=== PATIENT | female | born 1980 | race Caucasian/White ===

== ENCOUNTER 2018-03-01 01:38 | Emergency (ER) | payer OTHER ==
[2018-03-01] MEDS ORDERED: DEXAMETHASONE SOD PHOS INJ 10 MG/1 ML VIAL IM ONE (01:48)
--- NOTE | 2018-03-01 01:49 | ER Document Report ---
ED General - General Stated Complaint: POSSIBLE ALLERGIC REACTION Time Seen by Provider: 03/01/18 01:46 Notes: Patient is a 37-year-old female with a past medical history of epilepsy who presents with diffuse hives, bilateral hand and feet swelling. The patient reports that she has had some localized irritation to the injection site of progesterone which she has been taking to support a recent embryonic transplant. She states that initially there was only some mild irritation to the area but over the past 24 hours she has had progressively worsening swelling and pain to her bilateral hands and feet as well as scattered hives over her upper extremities, bilateral lower extremities and her upper back. She has been trying Benadryl, famotidine with moderate improvement. No obvious trigger other than recent initiation of progesterone injections. She denies any difficulty breathing, vomiting, abdominal cramping, diarrhea, or difficulty swallowing. She has contacted her BUSINESS EDITOR regarding today's concerns. TRAVEL OUTSIDE OF THE [place] IN LAST 30 DAYS: No Past Medical History - General Information source: Patient - Social History Smoking Status: Never Smoker Frequency of alcohol use: None Drug Abuse: None Lives with: Spouse/Significant other Family History: Reviewed & Not Pertinent Review of Systems - Review of Systems Notes: Constitutional: Negative for fever. HENT: Negative for sore throat. Eyes: Negative for visual changes. Cardiovascular: Negative for chest pain. Respiratory: Negative for shortness of breath. Gastrointestinal: Negative for abdominal pain, vomiting or diarrhea. Genitourinary: Negative for dysuria. Musculoskeletal: Negative for back pain. Skin: Positive for rash. Neurological: Negative for headaches, weakness or numbness. 10 point ROS negative except as marked above and in HPI. Physical Exam - Vital signs Interpretation: Normal Notes: PHYSICAL EXAMINATION: GENERAL: Well-appearing, well-nourished and in no acute distress. HEAD: Atraumatic, normocephalic. EYES: extraocular movements intact, sclera anicteric, conjunctiva are normal. ENT: nares patent, oropharynx clear without exudates. No oral lesions. NECK: Normal range of motion, no stridor LUNGS: Breath sounds clear to auscultation bilaterally and equal. No wheezes rales or rhonchi. HEART: Regular rate and rhythm without murmurs EXTREMITIES: Normal range of motion, no pitting or edema. No cyanosis. NEUROLOGICAL: No focal neurological deficits. Moves all extremities spontaneously. PSYCH: Normal mood, normal affect. SKIN: Warm, Dry, normal turgor, notable swelling to the palmar surface of the bilateral hands. Scattered urticaria over the bilateral upper and lower extremities. Course - Re-evaluation Re-evalutation: 03/01/18 01:48 Patient presents with symptoms consistent with an allergic reaction without anaphylaxis. Only cutaneous involvement with multiple areas of hives. Vitals otherwise within normal limits at time of arrival. No respiratory, GI, cardiovascular, or oral pharyngeal symptoms. Patient was treated with a single dose of dexamethasone. Will recommend ongoing antihistamine therapy as an outpatient. At this time will discharge with return precautions and follow-up recommendations. Verbal discharge instructions given a the bedside and opportunity for questions given. Medication warnings reviewed. Patient is in agreement with this plan and has verbalized understanding of return precautions and the need for primary care follow-up in the next 24-72 hours. Discharge - Discharge Clinical Impression: Urticaria Allergic reaction caused by a drug Qualifiers: Encounter type: initial encounter Qualified Code(s): T78.40XA - Allergy, unspecified, initial encounter Condition: Good Disposition: HOME, SELF-CARE Additional Instructions: You were seen today for hives. This can be either allergic, autoimmune, or environmental in origin. You can continue to take cetirizine 10mg up to 3 times daily as needed for itching. Apply the topical steroid cream that has been prescribed as needed for severe inching. IF YOU DEVELOP DIFFICULTY BREATHING, SPREADING OF HIVES, VOMITING, LIGHTHEADEDNESS, IMMEDIATELY AND CALL 911. Please follow-up with your primary care physician in the next 1-2 days. Prescriptions: Triamcinolone Acetonide 80 gm TP TID #15 cream.gm. Referrals: LOCALMD,NO [NO LOCAL MD] - Follow up as needed
[2018-03-01 03:43] VITALS: BP 124/69
== END 2018-03-01 02:03 | disposition home or self-care (01) ==
LOC: ER 01:38
DX: L50.0 Allergic urticaria (principal)
CPT/HCPCS: 99283; 96372; J1100

== ENCOUNTER → 2018-03-03 | Outpatient (CLI) | payer OTHER | LOC: LAB 07:43 | PROVIDERS: ATTEND Obstetrics & Gynecology Reproductive Endocrinology | DX: N92.5 Other specified irregular menstruation (principal); N94.89 Other specified conditions associated with female genital organs and menstrual cycle | CPT/HCPCS: 36415; 84144; 84702 ==

== ENCOUNTER → 2018-03-05 | Outpatient (CLI) | payer OTHER | LOC: LB 09:05 | PROVIDERS: ATTEND Family Medicine | DX: N94.89 Other specified conditions associated with female genital organs and menstrual cycle (principal) | CPT/HCPCS: 36415; 84702 ==

== ENCOUNTER → 2018-03-09 | Outpatient (CLI) | payer OTHER | LOC: ER 09:21 | PROVIDERS: ATTEND Obstetrics & Gynecology Reproductive Endocrinology | DX: O09.811 Supervision of pregnancy resulting from assisted reproductive technology, first trimester (principal) | CPT/HCPCS: 36415; 84144; 84702 ==

== ENCOUNTER → 2018-04-08 | Outpatient (CLI) | payer OTHER | LOC: LAB 19:48 | PROVIDERS: ATTEND Obstetrics & Gynecology Reproductive Endocrinology | DX: O09.891 Supervision of other high risk pregnancies, first trimester (principal) | CPT/HCPCS: 36415; 82670; 84144 ==

== ENCOUNTER 2018-04-11 13:32 | Emergency (ER) | payer OTHER ==
--- NOTE | 2018-04-11 14:09 | ER Document Report ---
ED General - General Chief Complaint: Vag Bleeding, +preg <12wks Stated Complaint: VAGINAL BLEEDING Time Seen by Provider: 04/11/18 14:00 TRAVEL OUTSIDE OF THE [place] IN LAST 30 DAYS: No - HPI Notes: Patient is a 38-year-old female that presents to the emergency department for chief complaint of vaginal bleeding in . Patient history of vaginal delivery of twins presents for vaginal bleeding. Due date 11/10/18. Patient had implantation of this back in December and has been taking hormone supplements as prescribed by FABRICATION MACHINE OPERATOR. She has had good follow-up throughout this . Patient has had early ultrasound to confirm intrauterine gestation. She reports vaginal bleeding that began 1 hour ago. Bleeding is bright red with no clotting. She has some associated lower abdominal cramping. She has had some lower back pain for the last 2 days. Denies history of miscarriage in the past. Denies any fevers nausea and vomiting. Past Medical History: Seizures, endometriosis Past Surgical History: Ex lap for endometriosis Social History: Occasional alcohol prior to . Denies tobacco and drug use Family History: Reviewed and noncontributory for presenting illness Allergies: Reviewed, see documented allergy list. REVIEW OF SYSTEMS: CONSTITUTIONAL : No fever No chills No diaphoresis No recent illness EENT: No vision changes No congestion No sore throat CARDIOVASCULAR: No chest pain No palpitations RESPIRATORY: No shortness of breath No cough No difficulty breathing GASTROINTESTINAL: abdominal pain No nausea No vomiting No diarrhea GENITOURINARY: No dysuria No hematuria No difficulty urinating Vaginal bleeding MUSCULOSKELETAL: No back pain No leg pain No arm pain SKIN: No rashes No lesions LYMPHATIC: No swollen, enlarged glands. NEUROLOGICAL: No lightheadedness No headache No weakness No paresthesias PSYCHIATRIC: No anxiety No depression PHYSICAL EXAMINATION: Vital signs reviewed, nursing noted reviewed. GENERAL: Well-appearing, well-nourished and in no acute distress. HEAD: Atraumatic, normocephalic. EYES: Eyes appear normal, extraocular movements intact, sclera anicteric, conjunctiva are normal. ENT: nares patent, oropharynx clear without exudates. Moist mucous membranes. NECK: Normal range of motion, supple without lymphadenopathy LUNGS: Breath sounds clear to auscultation bilaterally and equal. No wheezes rales or rhonchi. HEART: Regular rate and rhythm without murmurs ABDOMEN: Soft, nontender, normoactive bowel sounds. No rebound, guarding, or rigidity. No masses appreciated. EXTREMITIES: Nontender, good range of motion, no pitting or edema. NEUROLOGICAL: No focal neurological deficits. Moves all extremities spontaneously Motor and sensory grossly intact on exam. PSYCH: Normal mood, normal affect. SKIN: Warm, Dry, normal turgor, no rashes or lesions noted on exposed skin - Related Data Allergies/Adverse Reactions: pamabrom Allergy (Verified 04/11/18 13:33) Past Medical History - Social History Smoking Status: Never Smoker Family History: Reviewed & Not Pertinent Renal/ Medical History: Denies: Hx Peritoneal Dialysis Review of Systems - Review of Systems Notes: Dictated Physical Exam - Vital signs Vitals: Temp Pulse Resp BP Pulse Ox 98.2 F 91 16 133/75 H 99 04/11/18 14:16 04/11/18 14:16 04/11/18 14:16 04/11/18 14:16 04/11/18 14:16 - Notes Notes: Dictated Course - Re-evaluation Re-evalutation: 04/11/18 14:08 Vitals reviewed. Nursing notes reviewed. Bedside ultrasound shows intrauterine gestation however I am unable to visualize a heartbeat. Formal transvaginal ultrasound will be obtained. 04/11/18 15:11 Ultrasound shows no heart tones concerning for early demise. Recommend getting repeat beta hCG quant level and ultrasound in the next few days for confirmation. Rh+ and RhoGam not indicated. Patient will follow with FABRICATION MACHINE OPERATOR for further management. She will return for new or worsening symptoms. Discharged home in stable condition. Laboratory 04/11/18 04/11/18 04/11/18 13:47 13:47 13:47 WBC 8.3 RBC 4.45 Hgb 13.1 Hct 38.4 MCV 86 MCH 29.3 MCHC 34.0 RDW 12.5 Plt Count 298 Seg Neutrophils % 54.9 Lymphocytes % 24.8 Monocytes % 7.3 Eosinophils % 12.5 H Basophils % 0.5 Absolute Neutrophils 4.6 Absolute Lymphocytes 2.1 Absolute Monocytes 0.6 Absolute Eosinophils 1.0 H Absolute Basophils 0.0 Sodium 141.0 Potassium 4.1 Chloride 104 Carbon Dioxide 25 Anion Gap 12 BUN 13 Creatinine 0.59 Glucose 98 Calcium 9.4 Blood Type B POSITIVE Rhogam Indicated RHOGAM NOT INDICATED Transvaginal US 04/11/18 14:02 IMPRESSION: 1. Single intrauterine gestation without heart rate detected, concerning for failed 1st trimester . Recommend short-term sonographic follow-up and correlation with serial beta hCGs. 2. Small amount of pelvic free fluid. Trimester of : First - 0 to 13 weeks. - Vital Signs Vital signs: Temp Pulse Resp BP Pulse Ox 98.2 F 91 16 133/75 H 99 04/11/18 14:16 04/11/18 14:16 04/11/18 14:16 04/11/18 14:16 04/11/18 14:16 - Laboratory Result Diagrams: 04/11/18 13:47 04/11/18 13:47 Laboratory results interpreted by me: 04/11/18 13:47 Eosinophils % 12.5 H Absolute Eosinophils 1.0 H Discharge - Discharge Clinical Impression: Threatened in early Condition: Stable Disposition: HOME, SELF-CARE Instructions: Threatened Miscarriage ([facility]) Additional Instructions: Please return to the emergency department if you have any worsening, or concern of your symptoms. Please return to the emergency department if you develop chest pain, difficulty breathing, severe abdominal pain, or ongoing vomiting. Please follow-up with your primary care physician in 2-3 days and any other recommended physicians. If prescribed, take all medications as directed. If you have any questions or concerns do not hesitate to return the emergency department for evaluation. Call your FABRICATION MACHINE OPERATOR tomorrow morning to schedule repeat ultrasound and beta hCG quant levels
[2018-04-11 14:17] VITALS: BP 133/75
[2018-04-11 14:28] LABS: ABSOLUTE LYMPHOCYTES (AUTO) 2.1 10^3/uL (0.5-4.7); ABSOLUTE MONOCYTES (AUTO) 0.6 10^3/uL (0.1-1.4); ABSOLUTE NEUT (AUTO) 4.6 10^3/uL (1.7-8.2); BASOPHILS % (AUTO) 0.5 % (0-2); EOSINOPHILS % (AUTO) 12.5 % (0-6); HEMATOCRIT 38.4 % (36.0-47.0); HEMOGLOBIN 13.1 g/dL (12.0-15.5); LYMPHOCYTES % (AUTO) 24.8 % (13-45); MEAN CORPUSCULAR HEMOGLOBIN 29.3 pg (27.0-33.4); MEAN CORPUSCULAR VOLUME 86 fl (80-97); MONOCYTES % (AUTO) 7.3 % (3-13); PLATELET COUNT 298 10^3/uL (150-450); RED BLOOD COUNT 4.45 10^6/uL (3.72-5.28); RED CELL DISTRIBUTION WIDTH 12.5 % (11.5-14.0); SEGMENTED NEUTROPHILS % (AUTO) 54.9 % (42-78); TOTAL CELLS COUNTED % (AUTO) 100 %; WHITE BLOOD COUNT 8.3 10^3/uL (4.0-10.5)
[2018-04-11 14:46] LABS: ANION GAP 12 (5-19); BLOOD UREA NITROGEN 13 mg/dL (7-20); CALCIUM 9.4 mg/dL (8.4-10.2); CARBON DIOXIDE 25 mmol/L (22-30); CHLORIDE 104 mmol/L (98-107); GLUCOSE 98 mg/dL (75-110); POTASSIUM 4.1 mmol/L (3.6-5.0)
--- NOTE | 2018-04-11 14:55 | RADIOLOGY REPORT (SQ) ---
EXAM DESCRIPTION: U/S OB TRANSVAG W/DOPPLER COMPLETED DATE/TIME: 04/11/2018 2:31 pm REASON FOR STUDY: vaginal bleeding in preg COMPARISON: None. TECHNIQUE: Transvaginal static and realtime grayscale images acquired of the pelvis. Additional oskar cted spectral and color Doppler images recorded. All images stored on PACs. bHCG: Not available. CLINICAL DATES: 9 weeks 5 days LIMITATIONS: None. FINDINGS: FETUS: Single Living intrauterine . ULTRASOUND EGA: 9 weeks 4 day ULTRASOUND KENDRA: 11/10/2017 EFW: Not applicable less than 20 weeks. CRL: 2.8 cm FHR: No heart rate detected M mode, color or power Doppler SURVEY: Too early to assess. AMNIOTIC FLUID: Adequate amount. PLACENTA: Not yet developed due to early gestation. SUBCHORIONIC BLEED: No. SIZE OF BLEED: Not applicable. UTERUS: No masses. No anomalies. CERVICAL LENGTH: 4 sternum Closed. RIGHT ADNEXA: Normal ovary with normal vascular flow. No adnexal free fluid. No adnexal masses. 3.4 x 1.7 x 2.07 LEFT ADNEXA: Normal ovary with normal vascular flow. No adnexal free fluid. No adnexal masses. 2.3 x 1.4 x 1.5 cm FREE FLUID: Small pelvic free flow OTHER: No other significant finding. IMPRESSION: 1. Single intrauterine gestation without heart rate detected, concerning for failed 1st trimest er . Recommend short-term sonographic follow-up and correlation with serial beta hCGs. 2. Small amount of pelvic free fluid. Trimester of : First - 0 to 13 weeks. TECHNICAL DOCUMENTATION: JOB ID: [id number]- All Rights Reserved rev Reading location - IP/workstation name: [email or web address]
== END 2018-04-11 15:25 | disposition home or self-care (01) ==
LOC: ER 13:32
DX: O20.0 Threatened abortion (principal); O26.891 Other specified pregnancy related conditions, first trimester; R10.30 Lower abdominal pain, unspecified; O09.811 Supervision of pregnancy resulting from assisted reproductive technology, first trimester; Z3A.00 Weeks of gestation of pregnancy not specified; Z88.6 Allergy status to analgesic agent
CPT/HCPCS: 36415; 76817; 80048; 84702; 85025; 86900; 86901; 93976; 99284

== ENCOUNTER → 2019-05-13 | Outpatient (CLI) | payer OTHER ==
[2019-05-13 10:43] LABS: CHLAM PCR NOT DETECTED (NOT DETECT)
[2019-05-14 06:36] LABS: HEPATITIS C VIRUS AB <0.1 s/co ratio (0.0-0.9)
[2019-05-16 07:23] LABS: HEPATITS B SURFACE ANTIGEN Negative (Negative)
== END ==
LOC: LB 07:09
PROVIDERS: ATTEND Obstetrics & Gynecology Reproductive Endocrinology
DX: Z11.3 Encounter for screening for infections with a predominantly sexual mode of transmission (principal)
CPT/HCPCS: 36415; 86592; 86701; 86803; 86804; 87340; 87491; 87591

== ENCOUNTER 2019-06-26 16:30 | Emergency (ER) | payer OTHER ==
[2019-06-26] MEDS ORDERED: FAMOTIDINE INJ/PF 20 MG/2 ML SDV IV ONE ×2 (16:36→16:37)
[2019-06-26] MEDS ORDERED: DEXAMETHASONE SOD PHOSPHATE INJ 4 MG/1 ML VIAL ONE (16:36)
[2019-06-26] MEDS ORDERED: DIPHENHYDRAMINE HCL 50 MG/ML VIAL IV ONE (16:36)
[2019-06-26] MEDS ORDERED: DEXAMETHASONE SOD PHOS INJ 10 MG/1 ML VIAL IV ONE (16:36)
[2019-06-26] MEDS ORDERED: DIPHENHYDRAMINE HCL 50 MG/ML VIAL ONE (16:37)
--- NOTE | 2019-06-26 16:56 | ER Document Report ---
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 Patient complained of some swallowing patient has been receiving progesterone in sesame seed oil as injections as fertility adherent and actually had received injections last year with progesterone with cottonseed oil and had a severe allergic reaction as well. An chicken vaccinator was consulted and it was found she was not allergic to cottonseed oil. Patient has been having rhinorrhea and swelling of bilateral legs requiring her to wear stockings to her knees. Patient called her around 1600 who works on the [email or web address] and he will arrive as soon as he is off work around 1700. TRAVEL OUTSIDE OF THE [place] IN LAST 30 DAYS: No - HPI Onset: Other - Yesterday morning; but awoke this morning 0 530 with intense itchiness and took Benadryl 50 as well as another 50 at 1000 and another at 12 noon; Onset/Duration: Sudden Quality of pain: Other - Itchiness and problems swallowing Severity: Severe Pain Level: 5 Associated symptoms: Leg swelling - Bilateral leg swelling with stocking bilateral to knees, Other - Rhinorrhea and problems swallowing - Related Data Allergies/Adverse Reactions: cottonseed oil Allergy (Verified 06/26/19 17:00) pamabrom Allergy (Verified 04/11/18 13:33) Past Medical History - General Information source: Patient - Social History Smoking Status: Never Smoker - Reports she had allergic reaction when she was 20 in college to Pamabrom has 8 bromo-theophylline and also aminoisobutanol pa racetamol. She reports she drinks tea but has no reactions. Patient also takes Keppra and Vimpat for seizures Cigarette use (# per day): No Chew tobacco use (# tins/day): No Smoking Education Provided: No Frequency of alcohol use: Occasional Drug Abuse: None Lives with: Family Family History: Reviewed & Not Pertinent Patient has suicidal ideation: No Patient has homicidal ideation: No Renal/ Medical History: Denies: Hx Peritoneal Dialysis Past Surgical History: Reports: Hx Gynecologic Surgery Review of Systems - Review of Systems Constitutional: Malaise EENT: Nose congestion Cardiovascular: Palpitations, Other - Patient usually runs around 55 bpm heart rate Respiratory: Hurts to breathe Gastrointestinal: No symptoms reported Genitourinary: No symptoms reported Musculoskeletal: Leg swelling, Ankle swelling Skin: Rash Hematologic/Lymphatic: No symptoms reported Neurological/Psychological: No symptoms reported Physical Exam - Vital signs Vitals: Resp BP Pulse Ox 21 H 139/82 H 99 06/26/19 16:33 06/26/19 16:33 06/26/19 16:33 Interpretation: Tachycardic - General General appearance: Anxious In distress: Mild - HEENT Head: Normocephalic Eyes: Normal Conjunctiva: Normal Cornea: Normal Extraocular movements intact: Yes Eyelashes: Normal Pupils: PERRL Mouth/Lips: Other - Edema uvula Pharynx: Erythema Neck: Other - Normal range of motion but positive for allergic skin reaction - Respiratory Respiratory status: No respiratory distress Chest status: Nontender Breath sounds: Normal Chest palpation: Normal - Cardiovascular Rhythm: Tachycardia Heart sounds: Normal auscultation Murmur: No Friction rub: No Roger's crunch: No - Abdominal Inspection: Normal Distension: No distension Bowel sounds: Normal Tenderness: Nontender Organomegaly: No organomegaly - Back Back: Other - Allergic reaction to back confluent maculopapular erythemic - Extremities General upper extremity: Edema, Other - And confluent erythemic maculopapular rash from hands dorsally palmar wrist volar dorsal and forearms and arms very pruritic General lower extremity: Edema - Maculopapular rash all confluent and discrete that range from 1 cm to confluency annular and circumferential - Neurological Neuro grossly intact: Yes Cognition: Normal Orientation: AAOx4 [place] Coma Scale Eye Opening: Spontaneous [place] Coma Scale Verbal: Oriented Speech: Normal Cranial nerves: Normal Cerebellar coordination: Normal - Psychological Associated symptoms: Normal affect, Anxious - Skin Skin Temperature: Warm Skin Color: Erythema Location of irregularity: Generalized Character of irregularity: Maculopapular, Erythematous, Urticarial Course - Vital Signs Vital signs: Temp Pulse Resp BP Pulse Ox 39 H 126/81 H 99 06/26/19 16:59 06/26/19 16:59 06/26/19 16:59 - Laboratory Result Diagrams: 06/26/19 16:30 06/26/19 16:30 Laboratory results interpreted by me: 06/26/19 06/26/19 06/26/19 16:30 16:30 16:30 WBC 12.7 H Hgb 15.8 H Lymph % (Auto) 9.0 L [place] % (Auto) 2.6 L Absolute Neuts (auto) 11.1 H Seg Neutrophils % 88.0 H Sodium 134.7 L Glucose 118 H Beta HCG, Quant 7.05 H Urine Protein Urine Ketones 06/26/19 17:25 WBC Hgb Lymph % (Auto) [place] % (Auto) Absolute Neuts (auto) Seg Neutrophils % Sodium Glucose Beta HCG, Quant Urine Protein 30 H Urine Ketones TRACE H - EKG Interpretation by Me EKG shows normal: Sinus rhythm Rate: Normal - 96 hr Critical Care Note - Critical Care Note Total time excluding time spent on procedures (mins): 90 Comments: I advised cool showers and continued Pepcid and Benadryl and Decadron 4 Discharge - Discharge Clinical Impression: Allergic reaction caused by a drug Condition: Good Disposition: HOME, SELF-CARE Additional Instructions: Follow-up with OB doctor and with chicken vaccinator and continue with Benadryl Pepcid and Decadron and cool showers. Return to ER if symptoms persist or worsen Prescriptions: Dexamethasone [Decadron 4 Mg Tablet] 4 mg PO BID #8 tablet Famotidine [Pepcid 40 mg Tablet] 40 mg PO BID PRN #20 tablet PRN Reason: Forms: Return to Work
[2019-06-26 17:31] LABS: ABSOLUTE LYMPHOCYTES (AUTO) 1.1 10^3/uL (0.5-4.7); ABSOLUTE MONOCYTES (AUTO) 0.3 10^3/uL (0.1-1.4); ABSOLUTE NEUT (AUTO) 11.1 10^3/uL (1.7-8.2); BASOPHILS % (AUTO) 0.1 % (0-2); EOSINOPHILS % (AUTO) 0.3 % (0-6); HEMATOCRIT 45.4 % (36.0-47.0); HEMOGLOBIN 15.8 g/dL (12.0-15.5); MEAN CORPUSCULAR HEMOGLOBIN 30.3 pg (27.0-33.4); MEAN CORPUSCULAR HGB CONC 34.7 g/dL (32.0-36.0); MEAN CORPUSCULAR VOLUME 87 fl (80-97); MONOCYTES % (AUTO) 2.6 % (3-13); PLATELET COUNT 296 10^3/uL (150-450); RED BLOOD COUNT 5.21 10^6/uL (3.72-5.28); RED CELL DISTRIBUTION WIDTH 12.3 % (11.5-14.0); TOTAL CELLS COUNTED % (AUTO) 100 %; WHITE BLOOD COUNT 12.7 10^3/uL (4.0-10.5)
[2019-06-26 17:37] LABS: ALBUMIN 4.4 g/dL (3.5-5.0); ALKALINE PHOSPHATASE 62 U/L (38-126); ANION GAP 14 (5-19); ASPARTATE AMINO TRANSFERASE 27 U/L (14-36); BILIRUBIN,DIRECT 0.2 mg/dL (0.0-0.4); BILIRUBIN,TOTAL 0.9 mg/dL (0.2-1.3); BLOOD UREA NITROGEN 16 mg/dL (7-20); CALCIUM 9.9 mg/dL (8.4-10.2); CARBON DIOXIDE 22 mmol/L (22-30); CHLORIDE 99 mmol/L (98-107); CREATINE KINASE 82 U/L (30-135); GLUCOSE 118 mg/dL (75-110); POTASSIUM 4.4 mmol/L (3.6-5.0); TOTAL PROTEIN 7.6 g/dL (6.3-8.2)
[2019-06-26 17:43] LABS: APPEARANCE,URINE CLEAR; BILIRUBIN,URINE NEGATIVE (NEGATIVE); COLOR,URINE YELLOW; GLUCOSE, URINE NEGATIVE (NEGATIVE); KETONES,URINE TRACE mg/dL (NEGATIVE); LEUKOCYTE ESTERASE,URINE NEGATIVE (NEGATIVE); NITRITE,URINE NEGATIVE (NEGATIVE); PROTEIN,URINE 30 mg/dL (NEGATIVE); URINE SPECIFIC GRAVITY 1.033; UROBILINOGEN,URINE NEGATIVE mg/dL (<2.0)
[2019-06-26 19:17] VITALS: BP 133/79
--- NOTE | 2019-06-26 21:59 | EKG REPORT ---
SEVERITY:- ABNORMAL ECG - SINUS RHYTHM SERENA, CONSIDER BIATRIAL ABNORMALITIES CONSIDER RIGHT VENTRICULAR HYPERTROPHY : Confirmed by: Travis Gay MD 26-Jun-2019 21:59:11
== END 2019-06-26 19:17 | disposition home or self-care (01) ==
LOC: ER 16:30
DX: L50.0 Allergic urticaria (principal); T50.905A Adverse effect of unspecified drugs, medicaments and biological substances, initial encounter; R60.9 Edema, unspecified; J34.89 Other specified disorders of nose and nasal sinuses; R13.10 Dysphagia, unspecified; R00.2 Palpitations; R07.1 Chest pain on breathing; Z79.899 Other long term (current) drug therapy; Z88.6 Allergy status to analgesic agent
CPT/HCPCS: 93005; 99285; 96374; 96375; 36415; 82550; 84702; 85025; 80053; 81001; 84484; 84144; 93010; J1200; S0028; J1100

== ENCOUNTER 2019-08-01 01:33 | Emergency (ER) | payer OTHER ==
--- NOTE | 2019-08-01 02:08 | ER Document Report ---
ED General - General Chief Complaint: Vag Bleeding, +preg <12wks Stated Complaint: OTHER Primary Care Provider: ANGIE JONES DO [Primary Care Provider] - Follow up as needed TRAVEL OUTSIDE OF THE [place] IN LAST 30 DAYS: Yes - HPI Notes: Patient is a 39-year-old female at just over 8 weeks gestation with her third , who presents to the emergency department for evaluation of vaginal bleeding. She went to urinate, noticed some dark red blood and "tissue like" discharge on the toilet paper. She does not believe she is continued to have bleeding. She is currently on progesterone and estradiol, as this is an embryo transfer. The patient has had some mild abdominal cramping, but states that she has had this since the embryo transfer. She has had some nausea and fatigue, all similar to previous pregnancies. - Related Data Allergies/Adverse Reactions: cottonseed oil Allergy (Verified 06/26/19 17:00) pamabrom Allergy (Verified 04/11/18 13:33) Home Medications: Estrace, vaginal progesterone, IM progesterone, Vimpat, Keppra, folic acid Past Medical History - General Information source: Patient - Social History Smoking Status: Never Smoker Family History: Reviewed & Not Pertinent Patient has suicidal ideation: No Patient has homicidal ideation: No Neurological Medical History: Reports: Hx Seizures Renal/ Medical History: Denies: Hx Peritoneal Dialysis Past Surgical History: Reports: Hx Gynecologic Surgery Review of Systems - Review of Systems Female Genitourinary: See HPI -: Yes All other systems reviewed and negative Physical Exam - Vital signs Vitals: Temp Pulse Resp BP Pulse Ox 98.4 F 70 16 110/70 100 08/01/19 01:38 08/01/19 01:38 08/01/19 01:38 08/01/19 01:38 08/01/19 01:38 - Notes Notes: Is a very pleasant 39-year-old female who appears her stated age in no acute distress. Vital signs reviewed, please refer to chart. Head is normocephalic, atraumatic. Pupils equal round, reactive to light. Neck is supple without meningismus. Heart is regular rate and rhythm. Lungs are clear to auscultation bilaterally. Abdomen is soft, nontender, normoactive bowel sounds throughout. Extremities without cyanosis, clubbing. Posterior calves are nontender. Peripheral pulses are equal. Skin is warm and dry. Course - Re-evaluation Re-evalutation: 08/01/19 02:07 Patient presents to the emergency department for evaluation. She is status post frozen embryo transfer, 8 weeks per dates. She is not sure of her blood type, but states she does not have any indications for RhoGam. She did ask that an estradiol and progesterone level be ordered, as her divider operator will likely want this information. This were drawn. Transvaginal ultrasound was ordered. At this point, we will continue to monitor. Patient is stable. 08/01/19 03:01 Transvaginal ultrasound did reveal a single intrauterine with a normal heart rate. She does have a subchorionic hemorrhage. At this point I do not see any reason for pelvic exam. She is had multiple pelvic exams, has reliable follow-up. Her estradiol and progesterone levels are pending at this time. She is to follow-up with her LORI/OB in the coming days. She is to return to the emergency department with worsening or new concerning symptoms of any sort. - Vital Signs Vital signs: Temp Pulse Resp BP Pulse Ox 98.4 F 70 16 110/70 100 08/01/19 01:38 08/01/19 01:38 08/01/19 01:38 08/01/19 01:38 08/01/19 01:38 - Diagnostic Test Radiology reviewed: Reports reviewed Radiology results interpreted by me: 08/01/19 03:02 Obstetrics Ultrasound 08/01/19 01:34 IMPRESSION: 1. Single viable intrauterine with estimated gestational age of 8 weeks 3 days. 2. Small to moderately sized area of subchorionic hemorrhage. Discharge - Discharge Clinical Impression: Subchorionic hemorrhage in first trimester Qualifiers: Fetus number: single or unspecified fetus Qualified Code(s): O41.8X10 - Other specified disorders of amniotic fluid and membranes, first trimester, not applicable or unspecified; O46.8X1 - Other antepartum hemorrhage, first trimester Condition: Stable Disposition: HOME, SELF-CARE Instructions: Bleeding During Early ([facility]) Additional Instructions: Your ultrasound today revealed a small to moderate sized subchorionic hemorrhage. Your lab work is still pending. Follow-up with your OB. Return to the ED with worsening or new concerning symptoms of any sort. Referrals: ANGIE JONES DO [Primary Care Provider] - Follow up as needed
--- NOTE | 2019-08-01 02:47 | RADIOLOGY REPORT (SQ) ---
EXAM: US , Transvaginal EXAM DATE/TIME: 08/01/2019 2:08 AM CLINICAL HISTORY: The patient is 39 years old and is Female; , bleeding TECHNIQUE: Real-time transvaginal obstetrical ultrasound of the maternal pelvis and a first trimester with image documentation. Transvaginal imaging was used for better evaluation of the fetus and adnexa. COMPARISON: No relevant prior studies available. FINDINGS: GESTATION: There is a single intrauterine gestational sac containing a yolk sac and pole. Estimated gestational age based on crown-rump length is 8 weeks 3 days. KENDRA by this ultrasound is 03/09/2020. This correlates well with LMP. heart rate is 173 bpm. PLACENTA/AMNIOTIC FLUID: There is a small hypoechoic area adjacent to the gestational sac on the left, measuring 1.7 x 0.6 x 0.8 cm. This likely represents an area of subchorionic hemorrhage. UTERUS/CERVIX: The uterus measures 8.1 x 5.0 x 6.5 cm. No myometrial mass. The cervix measures 2.7 cm in length and is closed. OVARIES: The right ovary measures 2.9 x 1.8 x 1.7 cm. The left ovary measures 3.2 x 1.6 x 1.6 cm. There is suggestion of a corpus luteal cyst in the left ovary. The ovaries are otherwise unremarkable. Blood flow is demonstrated in bilateral ovaries. No obvious adnexal mass. FREE FLUID: No free fluid. IMPRESSION: 1. Single viable intrauterine with estimated gestational age of 8 weeks 3 days. 2. Small to moderately sized area of subchorionic hemorrhage.
[2019-08-01 03:20] VITALS: BP 102/57
== END 2019-08-01 03:22 | disposition home or self-care (01) ==
LOC: ER 01:33
DX: O41.8X10 Other specified disorders of amniotic fluid and membranes, first trimester, not applicable or unspecified (principal); Z3A.08 8 weeks gestation of pregnancy
CPT/HCPCS: 36415; 76817; 82670; 84144; 99284

== ENCOUNTER → 2020-05-21 | Outpatient (CLI) | payer OTHER ==
[~2020-05-21] MED LIST: COVID-19 VACCINE (PFIZER)/PF 30 MCG/0.3 ML VIAL IM ONE; EPINEPHRINE INJ/PF 1 MG/1 ML AMPULE IM PRN
== END ==
LOC: EMPHEALTH 15:38
PROVIDERS: ATTEND Internal Medicine
DX: Z23 Encounter for immunization (principal)
CPT/HCPCS: 91300

== ENCOUNTER → 2020-06-11 | Outpatient (CLI) | payer OTHER | LOC: EMPHEALTH 15:46 | PROVIDERS: ATTEND Internal Medicine | DX: Z23 Encounter for immunization (principal) | CPT/HCPCS: 91300 ==